=== PATIENT | female | born 1950 | race Caucasian/White ===

== ENCOUNTER 2019-03-18 11:32 | Inpatient (IN) ==
[2019-03-18] MEDS ORDERED: NEXIUM IV SCH (14:45)
[2019-03-18] MEDS ORDERED: SODIUM CHLORIDE 0.9% INJ SCH (14:45)
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
[2019-03-18] MEDS: TYLENOL PO PRN (15:56)
[2019-03-18] MEDS: ZOSYN 3.375 GM in NS 50 ML IV SCH ×2 (15:56→21:03)
[2019-03-18] MEDS: NS 1,000 ML IV SCH (15:57)
[2019-03-18] MEDS: LEVAQUIN 750 MG/D5W 750 MG/150 ML IVPB IV SCH (15:58)
--- NOTE | 2019-03-18 17:22 | Diag Imaging Result Doc PS360 ---
EXAM: CHEST-1 VIEW INDICATION: positive sepsis protocol TECHNIQUE: One view COMPARISON: 03/14/2017 FINDINGS: There are stable healed rib fractures on the left. There is ill-defined left lower lobe airspace consolidation consistent with pneumonia. The right lung appears to be clear. There is no discrete pleural fluid collection or pneumothorax. The cardiomediastinal silhouette and central vasculature are grossly unremarkable. IMPRESSION: Left lower lobe pneumonia. Electronically signed by Mehul Feng 03/18/2019 5:20 PM
[2019-03-18] MEDS: SODIUM CHLORIDE 0.9% INJ SCH (17:33)
[2019-03-18] MEDS: PROTONIX IV SCH (17:34)
[2019-03-18 17:42] LABS: HEMATOCRIT 33.7 % (37.0-47.0); HEMOGLOBIN 11.2 g/dL (12.0-16.0); IMM GRAN# 0.02 X1000 (0.0-0.04); IMM GRAN% 0.2 % (0.0-0.5); LYMPH# 0.69 X1000 (1.2-3.4); LYMPH% 5.6 % (20.5-51.1); MCH 28.5 PG (27-31); MCHC 33.2 g/dL (33-37); MCV 85.8 FL (81-99); MONO# 0.37 X1000 (0.11-0.59); NEUT# 11.21 X1000 (1.4-6.5); NEUT% 91.2 % (42.2-75.2); PLT 165 X1000 (130-400); RBC 3.93 XMIL (4.2-5.4); RDW 13.5 % (11.5-14.5); WBC 12.29 X1000 (4.8-10.8)
[2019-03-18 17:48] LABS: INR 1.23; PROTIME 15.7 Seconds (11.0-16.0)
[2019-03-18 17:49] LABS: PTT 38.4 Seconds (22.3-41.8)
[2019-03-18 18:19] LABS: AGAP 14; ALB/GLOB RATIO 1.8; ALBUMIN 3.5 g/dL (3.5-5.0); ALKALINE PHOSPHATASE 62 U/L (32-104); BUN 9 mg/dL (8-22); CALCIUM 8.8 mg/dL (8.8-10.2); CHLORIDE 94 mmol/L (98-107); CK PROFILE 120 U/L (24-173); COSMO 263; CREATININE 0.7 mg/dL (0.5-0.9); ESTIMATED GFR > 60; GLUCOSE 198 mg/dL (70-104); GOT 37 U/L (10-30); GPT 43 U/L (10-36); POTASSIUM 3.4 mmol/L (3.5-5.1); SODIUM 129 mmol/L (136-145); TCO2 21 mmol/L (25-35); TOTAL BILIRUBIN 0.63 mg/dL (0.20-1.00); TOTAL PROTEIN 5.4 g/dL (6.3-8.3)
[2019-03-18] MEDS: SENOKOT PO SCH ×2 (21:03→21:05)
[2019-03-18] MEDS: COLACE PO SCH ×2 (21:03→21:05)
[2019-03-18 21:26] LABS: URINE SOURCE CLEAN CATCH
[2019-03-18 21:29] LABS: BILIRUBIN URINE NEGATIVE (NEGATIVE); BLOOD URINE NEGATIVE (NEGATIVE); COLOR STRAW; GLUCOSE URINE NEGATIVE (NEGATIVE); KETONE URINE TRACE mg/dL (NEGATIVE); LEUKOCYTES URINE NEGATIVE (NEGATIVE); NITRITE URINE NEGATIVE (NEGATIVE); PH URINE 6.5; PROTEIN URINE TRACE mg/dL (NEGATIVE); SP GRAVITY URINE 1.006; TURBIDITY URINE CLEAR (CLEAR); UROBILINOGEN URINE NORMAL (NORMAL)
[2019-03-18 21:30] LABS: UR EPITHELIAL CELLS <10 /HPF (<10); URINE BACTERIA NEGATIVE /HPF; URINE RBC <10 /HPF (<10); URINE WBC <10 /HPF (<10)
[2019-03-19] MEDS: NS 1,000 ML IV SCH ×2 (02:26→20:16)
[2019-03-19] MEDS: ZOSYN 3.375 GM in NS 50 ML IV SCH ×4 (02:26→20:16)
[2019-03-19 07:43] LABS: BASO# 0.01 X1000 (0.0-0.2); BASO% 0.1 % (0.0-0.8); EOS# 0.02 X1000 (0.0-0.7); EOS% 0.2 % (0.0-10.0); HEMATOCRIT 32.8 % (37.0-47.0); HEMOGLOBIN 10.8 g/dL (12.0-16.0); LYMPH# 0.94 X1000 (1.2-3.4); LYMPH% 10.4 % (20.5-51.1); MCH 28.5 PG (27-31); MCHC 32.9 g/dL (33-37); MCV 86.5 FL (81-99); MONO% 6.7 % (1.7-9.3); MPV 10.9 FL (7.4-10.4); NEUT# 7.44 X1000 (1.4-6.5); NEUT% 82.6 % (42.2-75.2); PLT 180 X1000 (130-400); RBC 3.79 XMIL (4.2-5.4); RDW 13.7 % (11.5-14.5); WBC 9.01 X1000 (4.8-10.8)
[2019-03-19 08:16] LABS: AGAP 12; ALB/GLOB RATIO 1.3; ALBUMIN 3.3 g/dL (3.5-5.0); ALKALINE PHOSPHATASE 65 U/L (32-104); BUN 9 mg/dL (8-22); CALCIUM 8.8 mg/dL (8.8-10.2); CHLORIDE 102 mmol/L (98-107); COSMO 274; CREATININE 0.8 mg/dL (0.5-0.9); ESTIMATED GFR > 60; GLUCOSE 94 mg/dL (70-104); GOT 25 U/L (10-30); GPT 34 U/L (10-36); POTASSIUM 3.9 mmol/L (3.5-5.1); SODIUM 138 mmol/L (136-145); TCO2 24 mmol/L (25-35); TOTAL BILIRUBIN 0.44 mg/dL (0.20-1.00); TOTAL PROTEIN 5.9 g/dL (6.3-8.3)
--- NOTE | 2019-03-19 09:47 | Diag Imaging Result Doc PS360 ---
EXAM: CHEST-2 VIEWS INDICATION: hypoxia TECHNIQUE: 2 views COMPARISON: 03/18/2019 FINDINGS: The focal airspace consolidation at the left lower lung zone seen on the previous study is again identified. It appears slightly more dense than the previous study. It is probably located in the anterior aspect of the left lower lobe or possibly the lingula. No new consolidations are appreciated. Cardiac silhouette is stable. IMPRESSION: Slight increase in density of the left basilar infiltrate. Electronically signed by Mehul Feng 03/19/2019 9:45 AM
[2019-03-19] MEDS: FISH OIL CONCENTRATE PO SCH (10:51)
[2019-03-19] MEDS: METAMUCIL POWDER PACKET PO SCH (10:52)
--- NOTE | 2019-03-19 11:22 | PROGRESS NOTE ---
DATE: 03/19/2019 SUBJECTIVE: The patient is better. No cough. Fever was down. She is loosening up some of the secretions out. OBJECTIVE: On examination, temperature is 98.7 degrees, pulse 98, vitals are stable, 99% on room air. Is and Os -629 mL. HEENT Examination: Within normal limits. Neck: Supple. Decreased crackles in the left base. No neurological deficits. White cell count 9, hematocrit 32, platelets 180,000. SMA-7 is normal. Chest x-ray, left lower lobe infiltrate. ASSESSMENT AND PLAN: 1. Left lower lobe pneumonia. 2. Hyponatremia and dehydration. 3. Hypokalemia. 4. Plan of care is continue intravenous antibiotics, intravenous fluids, and with a combination of Zosyn and Levaquin, improving. If she is stable in the next 24 hours, we will discharge, transitioning to oral antibiotics. Initiate vaccination protocol prior to the discharge. LEVEL OF DOCUMENTATION: 25 minutes. cc: Johnnie Chavez MD
[2019-03-19] MEDS: LEVAQUIN 750 MG/D5W 750 MG/150 ML IVPB IV SCH (14:37)
[2019-03-19] MEDS: PROTONIX IV SCH (15:45)
[2019-03-19] MEDS: SODIUM CHLORIDE 0.9% INJ SCH (15:45)
[2019-03-19] MEDS: SENOKOT PO SCH (20:15)
[2019-03-19] MEDS: COLACE PO SCH (20:15)
[2019-03-20] MEDS: ZOSYN 3.375 GM in NS 50 ML IV SCH ×4 (03:26→20:57)
[2019-03-20] MEDS: NS 1,000 ML IV SCH ×3 (07:59→18:25)
[2019-03-20] MEDS: FISH OIL CONCENTRATE PO SCH (08:14)
[2019-03-20] MEDS: METAMUCIL POWDER PACKET PO SCH (08:14)
[2019-03-20] MEDS: LEVAQUIN 750 MG/D5W 750 MG/150 ML IVPB IV SCH (15:55)
[2019-03-20] MEDS: SODIUM CHLORIDE 0.9% INJ SCH (15:56)
[2019-03-20] MEDS: PROTONIX IV SCH (15:56)
[2019-03-20] MEDS: COLACE PO SCH (20:57)
[2019-03-20] MEDS: SENOKOT PO SCH (20:57)
[2019-03-20] MEDS ORDERED: PREVNAR 13 IM ONE (21:03)
--- NOTE | 2019-03-20 21:46 | PROGRESS NOTE ---
DATE: 03/20/2019 SUBJECTIVE: The patient is feeling better. Decrease in the productive cough and low-grade fever 99.5. OBJECTIVE: Vital Signs: Stable. On room air oxygen saturation is 96%. HEENT: exam within normal limits. Chest: Decreased crackles in the left base. Heart: Sounds are regular. Abdomen: Belly is soft, nontender. Good bowel sounds. Neurologic: No obvious deficits. INVESTIGATIONS: None reported. White cell count came back normal. ASSESSMENT AND PLAN: 1. Left lower lobe pneumonia. Continue on intravenous Zosyn and Levaquin. 2. Dehydration. Intravenous fluids. Ancillary support as per order sheet. If he continues to improve, will discharge within 48 hours. Pneumococcal vaccine 23 was given 2018. We will initiate 13 prior to the discharge. LEVEL OF DOCUMENTATION: 25 minutes. cc: Johnnie Chavez MD
[2019-03-21] MEDS: ZOSYN 3.375 GM in NS 50 ML IV SCH ×4 (02:38→20:51)
[2019-03-21] MEDS: NS 1,000 ML IV SCH ×4 (02:38→18:27)
[2019-03-21] MEDS: FISH OIL CONCENTRATE PO SCH (08:30)
[2019-03-21] MEDS: TYLENOL PO PRN (08:31)
[2019-03-21] MEDS: METAMUCIL POWDER PACKET PO SCH (08:31)
[2019-03-21] MEDS: PROTONIX IV SCH (15:01)
[2019-03-21] MEDS: LEVAQUIN 750 MG/D5W 750 MG/150 ML IVPB IV SCH (15:01)
[2019-03-21] MEDS: SODIUM CHLORIDE 0.9% INJ SCH (15:01)
[2019-03-21] MEDS: SENOKOT PO SCH (20:50)
[2019-03-21] MEDS: COLACE PO SCH (20:50)
--- NOTE | 2019-03-21 21:32 | PROGRESS NOTE ---
DATE: 03/21/2019 SUBJECTIVE: The patient is doing better, anxious to go home. OBJECTIVE: Vital Signs: Low-grade fever, 99.3 degrees. Vitals are stable. HEENT: Within normal limits. Chest: Bilateral air entry with crackles in the left base. Heart: Sounds are regular. [employer]ING [employer]ER: No obvious deficits. ASSESSMENT AND PLAN: 1. Left lower lobe pneumonia. 2. Hyponatremia, getting better. Continue intravenous fluids and repeat the chest x-ray in the morning. Continue intravenous Zosyn and Levaquin, and will also check the labs in the morning. Based on that, further recommendations will be followed. The patient is due for pneumococcal vaccine 13 prior to the discharge. LEVEL OF DOCUMENTATION: 25 minutes. cc: Johnnie Chavez MD
[2019-03-22] MEDS: ZOSYN 3.375 GM in NS 50 ML IV SCH ×4 (03:04→21:21)
[2019-03-22 07:45] LABS: BASO# 0.02 X1000 (0.0-0.2); BASO% 0.3 % (0.0-0.8); EOS# 0.08 X1000 (0.0-0.7); EOS% 1.3 % (0.0-10.0); HEMATOCRIT 33.5 % (37.0-47.0); HEMOGLOBIN 10.7 g/dL (12.0-16.0); IMM GRAN# 0.02 X1000 (0.0-0.04); IMM GRAN% 0.3 % (0.0-0.5); LYMPH# 1.23 X1000 (1.2-3.4); LYMPH% 19.4 % (20.5-51.1); MCH 27.9 PG (27-31); MCHC 31.9 g/dL (33-37); MCV 87.2 FL (81-99); MONO# 0.89 X1000 (0.11-0.59); MPV 9.7 FL (7.4-10.4); NEUT# 4.11 X1000 (1.4-6.5); NEUT% 64.7 % (42.2-75.2); PLT 309 X1000 (130-400); RBC 3.84 XMIL (4.2-5.4); RDW 13.7 % (11.5-14.5); WBC 6.35 X1000 (4.8-10.8)
--- NOTE | 2019-03-22 07:54 | Diag Imaging Result Doc PS360 ---
EXAM: CHEST-2 VIEWS HISTORY: hypoxia TECHNIQUE: Two views COMPARISON: 03/19/2019 FINDINGS: The lungs are hyperexpanded. Increased AP diameter to the chest. The pulmonary vessels are small. No cardiomegaly. There is a tiny left pleural effusion. There are infiltrates in the left lung base. Old rib fractures. There has been surgery to the lower neck and left clavicle. IMPRESSION: Emphysema with worsening left basilar pneumonia. Electronically signed by Tyson Durbin 03/22/2019 7:52 AM
[2019-03-22 08:07] LABS: AGAP 10; BUN 6 mg/dL (8-22); CALCIUM 9.3 mg/dL (8.8-10.2); CHLORIDE 102 mmol/L (98-107); COSMO 275; CREATININE 0.7 mg/dL (0.5-0.9); ESTIMATED GFR > 60; GLUCOSE 100 mg/dL (70-104); POTASSIUM 3.7 mmol/L (3.5-5.1); SODIUM 139 mmol/L (136-145); TCO2 27 mmol/L (25-35)
[2019-03-22] MEDS: METAMUCIL POWDER PACKET PO SCH (08:08)
[2019-03-22] MEDS: FISH OIL CONCENTRATE PO SCH (08:08)
[2019-03-22] MEDS: SODIUM CHLORIDE 0.9% INJ SCH ×2 (13:45→17:21)
[2019-03-22] MEDS: PROTONIX IV SCH (13:46)
[2019-03-22] MEDS: LEVAQUIN 750 MG/D5W 750 MG/150 ML IVPB IV SCH (13:54)
[2019-03-22] MEDS: TYLENOL PO PRN ×2 (16:17→23:39)
--- NOTE | 2019-03-22 21:15 | PROGRESS NOTE ---
DATE: 03/22/2019 SUBJECTIVE: The patient is anxious to go home. Chest x-ray is worsening. Crackles in the left base. A lot of productive cough. PHYSICAL EXAMINATION: Temperature is 100. Tachycardic. Vitals are stable.HEENT Exam: Normal. Lungs: Crackles in the left base. Heart: Sounds are regular. INVESTIGATIONS: White cell count 6.3, hematocrit 33, platelets 309,000. SMA 7 was normal and chest x-ray is worsening. ASSESSMENT AND PLAN: 1. Left lower lobe pneumonia. 2. Follow up on blood cultures were negative. We will hold off discharge. Discontinue IV fluids. Continue IV antibiotics and if he is afebrile the next 48 hours, we will discharge. Continue on Levaquin and Zosyn. LEVEL OF DOCUMENTATION: 25 minutes. cc: Johnnie Chavez MD MTDD
[2019-03-22] MEDS: COLACE PO SCH (21:21)
[2019-03-22] MEDS: SENOKOT PO SCH (21:22)
[2019-03-23] MEDS: ZOSYN 3.375 GM in NS 50 ML IV SCH ×4 (01:46→23:40)
[2019-03-23] MEDS ORDERED: TYLENOL PO PRN (08:08)
[2019-03-23] MEDS ORDERED: AMBIEN PO PRN (08:08)
[2019-03-23] MEDS ORDERED: NS 250 ML ONE (08:18)
[2019-03-23 09:56] LABS: INR 0.98; PROTIME 13.1 Seconds (11.0-16.0)
[2019-03-23] MEDS: FISH OIL CONCENTRATE PO SCH (09:59)
[2019-03-23] MEDS: METAMUCIL POWDER PACKET PO SCH (10:00)
[2019-03-23] MEDS: SODIUM CHLORIDE 0.9% INJ SCH ×2 (14:05→17:16)
[2019-03-23] MEDS: LEVAQUIN 750 MG/D5W 750 MG/150 ML IVPB IV SCH (14:05)
[2019-03-23] MEDS: PROTONIX IV SCH (14:05)
--- NOTE | 2019-03-23 21:25 | PROGRESS NOTE ---
DATE: 03/23/2019 SUBJECTIVE: The patient anxious to go home. He had a fever last night 100, prior to cough, not in respiratory distress. OBJECTIVE: Temp is 99.4 degrees, pulse 102, vitals are stable.HEENT: Within normal limits. Neck: Supple. Crackles in the left base. Heart: Sounds are regular. ASSESSMENT AND PLAN: 1. Left lower lobe pneumonia, anxious to go home. Consider home IV antibiotics. 2. Will get a PICC line. 3. Blood cultures were negative. 4. Insomnia. Ambien as needed currently on Levaquin and Zosyn, and we will arrange home IV antibiotics. Also, pneumococcal vaccine prior to the discharge. LEVEL OF DOCUMENTATION: 25 minutes. cc: Johnnie Chavez MD
[2019-03-23] MEDS: COLACE PO SCH (23:40)
[2019-03-23] MEDS: SENOKOT PO SCH (23:40)
[2019-03-24] MEDS: ZOSYN 3.375 GM in NS 50 ML IV SCH ×3 (01:47→10:28)
[2019-03-24] MEDS: FISH OIL CONCENTRATE PO SCH (09:33)
[2019-03-24] MEDS: METAMUCIL POWDER PACKET PO SCH (09:34)
[2019-03-24] MEDS: LEVAQUIN 750 MG/D5W 750 MG/150 ML IVPB IV SCH ×2 (11:36→17:27)
[2019-03-24 15:14] VITALS: BP 141/74
[2019-03-24] MEDS: PROTONIX IV SCH (17:28)
[2019-03-24] MEDS: SODIUM CHLORIDE 0.9% INJ SCH (17:28)
--- NOTE | 2019-03-29 07:45 | DISCHARGE SUMMARY ---
ADMISSION DATE: 03/18/2019 DISCHARGE DATE: 03/24/2019 DISCHARGING DIAGNOSIS: Left lower lobe pneumonia. SECONDARY DIAGNOSES: 1. Bronchiectasis in the right lower lobe, stable. 2. Cervical spondylosis. 3. Acid reflux disease. 4. History of hyperlipidemia. PROCEDURES: PICC line on the left side. BRIEF HISTORY: Please see the H and P that was done on 03/18/2019. In brief, she is a 68-year- old, white female, who was admitted to the hospital with hypoxemia, elevated white cell count, crackles in the left lung base consistent with left lower lobe pneumonia. She was dehydrated. HOSPITAL COURSE: She was given IV fluids, oxygen, IV Zosyn, and Levaquin. She continues to have left lower lobe infiltrate and low-grade fever. On followup labs, CBC came back normal, electrolytes were normal. Since she is malnourished, she was placed on PICC line, arranged outpatient IV antibiotics with Levaquin 500 daily for 2 weeks. LABORATORY DATA: At the time of discharge, white cell count 6.35, hematocrit 33.5, platelets 309,000. SMA-7 is normal. Blood cultures were negative. IMMUNIZATIONS: Flu vaccine on 12/15/2018, pneumococcal vaccine 13 on 03/24/2019. DISCHARGE INSTRUCTIONS: Colace 100 daily, fish oil 1 tablet p.o. b.i.d., Senokot 1 tablet daily, Poly-DM 1 teaspoon every 8 hours, and Prilosec 20 mg daily. IV Levaquin 500 daily for 2 weeks, and follow up in my office in 10 days. cc: Johnnie Chavez MD
== END 2019-03-24 16:58 | disposition home health service (06) | DRG 191 ==
LOC: DIRADM 11:32 → 4N 13:11
PROVIDERS: ADMIT Internal Medicine; ATTEND Internal Medicine